=== PATIENT | male | born 2000 | race Two or more races ===

== ENCOUNTER 2024-08-15 08:54 | Emergency (ER) | payer OTHER ==
[~2024-08-15] VITALS: Ht 182.9 cm; Wt 88.0 kg
[2024-08-15] MEDS ORDERED: KETOROLAC TROMETHAMINE 60 MG VIAL IM STA (09:42)
== END 2024-08-15 11:18 | disposition home or self-care (01) ==
LOC: ER 08:56
DX: S93.492A Sprain of other ligament of left ankle, initial encounter (principal); Y93.02 Activity, running; Y92.413 State road as the place of occurrence of the external cause